=== PATIENT | male | born 1950 | race Caucasian/White ===

== ENCOUNTER → 2017-12-28 | Day surgery (SDC) | payer MEDICARE ==
[2017-12-27 12:47] LABS: BASOPHILS % 0.5 % (0.0-1.0); EOSINOPHILS # (AUTO) 0.2 (0.0-0.4); EOSINOPHILS % 3.8 % (0.0-6.0); HEMATOCRIT 42.9 % (38.2-49.6); HEMOGLOBIN 14.7 g/dL (14.0-18.0); LYMPHOCYTES # (AUTO) 1.4 (1.0-3.2); LYMPHOCYTES % 22.6 % (18.0-39.1); MEAN CORPUSCULAR HEMOGLOBIN 32.1 pg (28-32); MEAN CORPUSCULAR HGB CONC 34.3 g/dL (31-35); MEAN CORPUSCULAR VOLUME 93.7 fL (81-99); MONOCYTES # (AUTO) 0.5 (0.2-0.8); MONOCYTES % 7.7 % (4.4-11.3); NEUTROPHILS # (AUTO) 4.1 (2.1-6.9); NEUTROPHILS % 65.2 % (38.7-80.0); PLATELET COUNT 209 x10e3/uL (140-360); RED BLOOD COUNT 4.58 x10e6/uL (4.3-5.7); RED CELL DISTRIBUTION WIDTH 11.7 % (11.7-14.4)
[2017-12-27 12:59] LABS: INR 1.1; PROTHROMBIN TIME 13.4 seconds (11.9-14.5)
[2017-12-27 13:07] LABS: ALANINE AMINOTRANSFERASE 19 IU/L (0-55); ALBUMIN 4.1 g/dL (3.5-5.0); ALBUMIN/GLOBULIN RATIO 1.4 (0.8-2.0); ALKALINE PHOSPHATASE 54 IU/L (40-150); ANION GAP 13.6 mmol/L (8-16); BLOOD UREA NITROGEN 15 mg/dL (7-26); BUN/CREATININE RATIO 18 (6-25); CALCIUM 9.6 mg/dL (8.4-10.2); CARBON DIOXIDE 28 mmol/L (22-29); CHLORIDE 108 mmol/L (98-107); CHOL/HDL RATIO 4.6 (3.9-4.7); CHOLESTEROL 144 MD/DL (0-199); CREATININE, SERUM 0.83 mg/dL (0.72-1.25); EST GLOMERULAR FILTRATION RATE > 60 ML/MIN (60-); GLUCOSE 106 mg/dL (74-118); HDL CHOLESTEROL 31 MG/DL (40-60); LDL CHOLESTEROL 68 MG/DL (60-130); POTASSIUM 5.6 mmol/L (3.5-5.1); SODIUM 144 mmol/L (136-145); TRIGLYCERIDES 227 MG/DL (0-149)
[~2017-12-28] VITALS: Ht 180.3 cm; Wt 99.8 kg
[~2017-12-28] MED LIST: ALPRAZOLAM 0.5 MG TAB ONE; ASPIRIN81 M1 PO; CALCIUM PO; CLARITIN; COQ-10100 MG PO; CRESTOR20 MG PO; DIPHENHYDRAMINE HCL 25 MG CAP ONE; DOXAZOSIN MESYLA4 MG PO; FENTANYL CITRATE/PF 100MCG/2 ML INJ ONE; FLONASE; HEPARIN SOD (PORCINE) 1000 UNIT/ML 30ML ONE; HEPARIN SOD/SOD CHLORIDE 2,000 ML ONE; IODINE PO; IOPAMIDOL 370 MG/ML 200 ML INFUS..BTL INJ ONE; LIDOCAINE HCL 2% LOCAL 20 ML VIAL ONE; LISINOPRIL5 MG PO; LORATADINE10 MG PO; MIDAZOLAM HCL 2 MG/2 ML VIAL ONE; NIACIN500 MG PO; NITROGLYCERIN/D5W 200 MCG/ML 250 ML ONE; POTASSIUM PO; SODIUM CHLORIDE 0.9% 1000ML 1,000 ML ONE; VERAPAMIL HCL 2.5 MG/ML 2 ML VIAL ONE; VITAMIN B-12 PO; VITAMIN C1000 MG PO; VITAMIN D32000 UNIT PO; [UNRECOGNIZED DRUG - OTHER] PO
[2017-12-28 06:51] VITALS: BP 149/77
[2017-12-28 08:40] VITALS: BP 115/70
[2017-12-28 08:55] VITALS: BP 114/72
[2017-12-28 09:10] VITALS: BP 112/71
--- NOTE | 2017-12-28 09:23 | Operative Report ---
DATE OF PROCEDURE: December 28, 2017 INDICATIONS: Coronary artery disease and abnormal stress test with lateral ischemia. PROCEDURES PERFORMED 1. Left heart catheterization. 2. Selective coronary angiography. 3. Deployment of right groin Perclose and right wrist transradial band. COMPLICATIONS: Unable to cannulate the right radial artery. Access was obtained in the right radial artery using ultrasound guidance. A 5-[place]man[place] sheath was placed. Failure to advance catheter. Procedure aborted. Access obtained in the right femoral artery. A 6-[place] sheath was placed. Diagnostic coronary angiogram revealed mild diffuse coronary artery disease in the left main, left anterior descending, diagonal, circumflex, obtuse marginal, right coronary artery. Right posterior descending artery had less than 20% stenosis with excellent flow. No critical stenosis or occlusions were noted. Right wrist TR band applied. Right groin Perclose applied. Patient discharged home same day. Job#: [id number] MISAEL
[2017-12-28 10:31] VITALS: BP 133/78
[2017-12-28 14:17] VITALS: BP 133/78
== END | disposition home or self-care (01) ==
LOC: CATH LAB 06:23
PROVIDERS: ATTEND Internal Medicine Interventional Cardiology
DX: I25.10 Atherosclerotic heart disease of native coronary artery without angina pectoris (principal); R94.39 Abnormal result of other cardiovascular function study; Z01.812 Encounter for preprocedural laboratory examination; Z79.82 Long term (current) use of aspirin; Z68.32 Body mass index [BMI] 32.0-32.9, adult
CPT/HCPCS: 36415; 77002; 80053; 80061; 85025; 85610; 93458; C1725; C1769 ×2; J1644; J2001; J2250; J7030; Q9967; 36140

== ENCOUNTER → 2019-04-07 | Day surgery (SDC) | payer MEDICARE ==
[2019-04-03 12:23] LABS: BASOPHILS % 0.4 % (0.0-1.0); EOSINOPHILS # (AUTO) 0.2 (0.0-0.4); EOSINOPHILS % 3.6 % (0.0-6.0); HEMATOCRIT 41.8 % (38.2-49.6); HEMOGLOBIN 14.8 g/dL (14.0-18.0); LYMPHOCYTES # (AUTO) 1.2 (1.0-3.2); LYMPHOCYTES % 21.9 % (18.0-39.1); MEAN CORPUSCULAR HEMOGLOBIN 32.8 pg (28-32); MEAN CORPUSCULAR HGB CONC 35.4 g/dL (31-35); MEAN CORPUSCULAR VOLUME 92.7 fL (81-99); MONOCYTES # (AUTO) 0.4 (0.2-0.8); MONOCYTES % 8.4 % (4.4-11.3); NEUTROPHILS # (AUTO) 3.5 (2.1-6.9); NEUTROPHILS % 65.5 % (38.7-80.0); PLATELET COUNT 233 x10e3/uL (140-360); RED BLOOD COUNT 4.51 x10e6/uL (4.3-5.7); RED CELL DISTRIBUTION WIDTH 11.8 % (11.7-14.4)
[~2019-04-07] MED LIST changes: -ALPRAZOLAM 0.5 MG TAB ONE; -DIPHENHYDRAMINE HCL 25 MG CAP ONE; -HEPARIN SOD (PORCINE) 1000 UNIT/ML 30ML ONE; -HEPARIN SOD/SOD CHLORIDE 2,000 ML ONE; +HYOSCYAMINE SULFATE 0.5 MG/ML INJ ONE; -IOPAMIDOL 370 MG/ML 200 ML INFUS..BTL INJ ONE; +KETAMINE HCL INJ 50 MG/ML 10 ML VIAL ONE; -LIDOCAINE HCL 2% LOCAL 20 ML VIAL ONE; +LIDOCAINE HCL 2% LOCAL INJ 5 ML SDV VIAL INJ ONE; -NITROGLYCERIN/D5W 200 MCG/ML 250 ML ONE; +POTASSIUM IODIDE; +PROPOFOL IV EMULSION 10 MG/ML 50 ML VIAL ONE; -SODIUM CHLORIDE 0.9% 1000ML 1,000 ML ONE; -VERAPAMIL HCL 2.5 MG/ML 2 ML VIAL ONE
[2019-04-07 10:45] VITALS: BP 118/91
--- NOTE | 2019-04-07 11:32 | Operative Report ---
DATE OF PROCEDURE: 04/07/2019 SURGEON: Otf Irene MD PROCEDURE: Colonoscopy with polypectomy and biopsies. INDICATIONS FOR COLONOSCOPY: Surveillance colonoscopy, personal history of colon polyps. MEDICATION: The patient was done under MAC, please see anesthesiologist's note. PROCEDURE IN DETAIL: With the patient in left lateral decubitus position, flexible fiberoptic Olympus colonoscope was inserted into the rectum with ease and advanced all the way to the cecum. It was then withdrawn slowly and mucosa overlying the cecum and ascending colon appeared to be within normal limits. One polyp was snared and one polyp was hot biopsied from the transverse colon. Mucosa overlying the descending appeared to be within normal limits. Diverticular disease was noted to involve the sigmoid colon. Mucosa overlying the sigmoid colon revealed some diffuse erythema, edema and some friability and multiple biopsies were obtained. The rectum grossly appeared to be within normal limits. The scope was then retroflexed into the distal rectum and small internal hemorrhoids were noted none of which was actively bleeding. The scope was then straightened out, it was subsequently withdrawn. The patient tolerated procedure well. IMPRESSION: 1. Transverse colon polyps x2, one snared and one hot biopsied. 2. Diverticulosis. 3. Segmental colitis, sigmoid colon, biopsies obtained. 4. Internal hemorrhoids, none actively bleeding. PLAN: Follow up histology. Initiate high-fiber, low-fat diet. Initiate high-fiber supplement. The patient might benefit from a followup colonoscopy in 5 years. Otf Irene MD [facility] [place] /[id number] cc: Demar Beckham MD
== END | disposition home or self-care (01) ==
LOC: OR 06:15
PROVIDERS: ATTEND Internal Medicine Gastroenterology
DX: K57.30 Diverticulosis of large intestine without perforation or abscess without bleeding (principal); D12.3 Benign neoplasm of transverse colon; K50.10 Crohn's disease of large intestine without complications; K64.8 Other hemorrhoids; R00.1 Bradycardia, unspecified; I10 Essential (primary) hypertension; F32.9 Major depressive disorder, single episode, unspecified; Z88.0 Allergy status to penicillin; Z01.810 Encounter for preprocedural cardiovascular examination; Z01.812 Encounter for preprocedural laboratory examination; Z79.82 Long term (current) use of aspirin; Z87.891 Personal history of nicotine dependence
CPT/HCPCS: 36415; 45380; 45384; 45385; 85025; 88305; 93005; J1980; J2001; J2250; J2704; 45378

== ENCOUNTER → 2020-06-07 | Outpatient (CLI) | payer MEDICARE ==
[~2020-06-07] MED LIST changes: -FENTANYL CITRATE/PF 100MCG/2 ML INJ ONE; -HYOSCYAMINE SULFATE 0.5 MG/ML INJ ONE; -KETAMINE HCL INJ 50 MG/ML 10 ML VIAL ONE; -LIDOCAINE HCL 2% LOCAL INJ 5 ML SDV VIAL INJ ONE; -MIDAZOLAM HCL 2 MG/2 ML VIAL ONE; -PROPOFOL IV EMULSION 10 MG/ML 50 ML VIAL ONE
== END ==
LOC: RAD 13:37
PROVIDERS: ATTEND Internal Medicine
DX: M79.662 Pain in left lower leg (principal); R60.9 Edema, unspecified; M79.89 Other specified soft tissue disorders; R50.9 Fever, unspecified
CPT/HCPCS: 93971

== ENCOUNTER → 2023-04-22 | Day surgery (SDC) | payer MEDICARE ==
[2023-04-21 09:36] LABS: BASOPHILS % 0.6 % (0.0-1.0); EOSINOPHILS # (AUTO) 0.2 (0.0-0.4); EOSINOPHILS % 2.4 % (0.0-6.0); HEMATOCRIT 40.3 % (38.2-49.6); HEMOGLOBIN 13.7 g/dL (14.0-18.0); LYMPHOCYTES # (AUTO) 1.1 (1.0-3.2); LYMPHOCYTES % 16.9 % (18.0-39.1); MEAN CORPUSCULAR VOLUME 94.2 fL (81-99); MONOCYTES # (AUTO) 0.6 (0.2-0.8); MONOCYTES % 9.9 % (4.4-11.3); NEUTROPHILS # (AUTO) 4.4 (2.1-6.9); PLATELET COUNT 223 x10e3/uL (140-360); RED BLOOD COUNT 4.28 x10e6/uL (4.3-5.7)
[~2023-04-22] MED LIST changes: +CLARITIN10 MG PO; +FINASTERIDE5 MG PO; +FLONASE ALLERG9.9 ML INH; +MULTI-VITAMIN1 EACH PO; +POVIDONE IODINE 0.05% 0.05 % ML PO ONE; +PROPOFOL IV EMULSION 10 MG/ML 20 ML VIAL ONE
[2023-04-22 14:15] VITALS: TEMP 97
[2023-04-22 14:35] VITALS: BP 144/86; PULSE 82; RESP 18; O2SAT 98
== END | disposition home or self-care (01) ==
LOC: OR 11:14
PROVIDERS: ATTEND Internal Medicine Gastroenterology
DX: K64.4 Residual hemorrhoidal skin tags (principal); Z86.010 Personal history of colon polyps; K57.30 Diverticulosis of large intestine without perforation or abscess without bleeding; K51.50 Left sided colitis without complications; K62.89 Other specified diseases of anus and rectum; K64.8 Other hemorrhoids; Z71.3 Dietary counseling and surveillance; I10 Essential (primary) hypertension; E78.5 Hyperlipidemia, unspecified; Z01.812 Encounter for preprocedural laboratory examination; Z79.82 Long term (current) use of aspirin; Z79.899 Other long term (current) drug therapy; Z68.30 Body mass index [BMI] 30.0-30.9, adult
CPT/HCPCS: 36415; 45380; 83630; 83993; 85025; 87045; 87177; 87324; 87328; 87449; 93005; J2704; 45378